=== PATIENT | female | born 2000 | race Caucasian/White ===

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

== ENCOUNTER 2020-02-16 11:59 | Emergency (ER) | payer BC, MEDICAID ==
--- NOTE | 2020-02-16 12:24 | ER Document Report ---
ED Medical Screen (RME) - General Chief Complaint: Leg Swelling Stated Complaint: LOWER RIGHT LEG PAIN/SWELLING Time Seen by Provider: 02/16/20 12:17 Primary Care Provider: NALLELY WHITE [Primary Care Provider] - Follow up as needed TRAVEL OUTSIDE OF THE [place] IN LAST 30 DAYS: No - HPI Notes: Patient is a 19-year-old female with no medical history who presents with right lower leg swelling that began yesterday. Patient reports redness, pain and swelling to her right calf. She currently takes OCPs with estrogen in them. She denies tobacco use and any recent travel. She denies any recent injury to her right leg. Patient was seen by her primary care this morning and was told to come to the ED for rule out of a DVT. No prior history of blood clots. - Related Data Allergies/Adverse Reactions: No Known Allergies Allergy (Verified 09/05/18 17:11) Home Medications: control, doxycycline hyclate Past Medical History - Social History Chew tobacco use (# tins/day): No Frequency of alcohol use: None Drug Abuse: None Family history: Reviewed & Not Pertinent Pulmonary Medical History: Denies: Hx Asthma Neurological Medical History: Reports: Hx Migraine. Denies: Hx Cerebrovascular Accident, Hx Seizures Renal/ Medical History: Denies: Hx Peritoneal Dialysis - Immunizations Immunizations up to date: Yes Hx Diphtheria, Pertussis, Tetanus Vaccination: Yes Physical Exam - Vital signs Vitals: Temp Pulse Resp BP Pulse Ox 98.1 F 104 H 18 137/69 H 99 02/16/20 12:02/16/20 12:02/16/20 12:02/16/20 12:02/16/20 12:07 - Cardiovascular Pulses: Normal: Posterior tibial, Dorsalis pedis - Extremities Calf: Tender, Other - Swelling and mild erythema Course - Re-evaluation Re-evalutation: I have greeted and performed a rapid initial assessment of this patient. A comprehensive ED assessment and evaluation of the patient, analysis of test results and completion of medical decision making process will be conducted by an additional ED providers. - Vital Signs Vital signs: Temp Pulse Resp BP Pulse Ox 98.1 F 104 H 18 137/69 H 99 02/16/20 12:02/16/20 12:07 02/16/20 12:02/16/20 12:07 02/16/20 12:07 Doctor's Discharge - Discharge Referrals: NALLELY WHITE [Primary Care Provider] - Follow up as needed
[2020-02-16 12:54] LABS: ABSOLUTE EOSINOPHILS # (AUTO) 0.2 10^3/uL (0.0-0.6); ABSOLUTE LYMPHOCYTES (AUTO) 2.2 10^3/uL (0.5-4.7); ABSOLUTE MONOCYTES (AUTO) 0.6 10^3/uL (0.1-1.4); ABSOLUTE NEUT (AUTO) 6.8 10^3/uL (1.7-8.2); BASOPHILS % (AUTO) 0.2 % (0-2); EOSINOPHILS % (AUTO) 2.4 % (0-6); HEMATOCRIT 38.3 % (36.0-47.0); HEMOGLOBIN 13.2 g/dL (12.0-15.5); LYMPHOCYTES % (AUTO) 22.1 % (13-45); MEAN CORPUSCULAR HEMOGLOBIN 30.9 pg (27.0-33.4); MEAN CORPUSCULAR HGB CONC 34.5 g/dL (32.0-36.0); MEAN CORPUSCULAR VOLUME 90 fl (80-97); MONOCYTES % (AUTO) 5.8 % (3-13); PLATELET COUNT 241 10^3/uL (150-450); RED BLOOD COUNT 4.27 10^6/uL (3.72-5.28); RED CELL DISTRIBUTION WIDTH 13.1 % (11.5-14.0); SEGMENTED NEUTROPHILS % (AUTO) 69.5 % (42-78); TOTAL CELLS COUNTED % (AUTO) 100 %; WHITE BLOOD COUNT 9.7 10^3/uL (4.0-10.5)
[2020-02-16 13:01] LABS: INTERNATIONAL RATION (INR) 1.01; PARTIAL THROMBOPLASTIN TIME 28.3 SEC (23.5-35.8); PROTHROMBIN TIME 13.5 SEC (11.4-15.4)
--- NOTE | 2020-02-16 15:11 | RADIOLOGY REPORT (SQ) ---
EXAM DESCRIPTION: VENOUS UNILATERAL LOWER IMAGES COMPLETED DATE/TIME: 02/16/2020 3:04 pm REASON FOR STUDY: right calf swelling COMPARISON: None. TECHNIQUE: Dynamic and static hayes scale and color images acquired of the right leg venous system. S elected spectral images acquired with additional compression and augmentation maneuvers. The contrala teral common femoral vein and saphenofemoral junction were also imaged. Images stored on PACS. LIMITATIONS: None. FINDINGS: COMMON FEMORAL: Normal phasicity, compression and augmentation. No visualized echogenic ma terial on hayes scale. No defects on color images. FEMORAL: Normal compression and augmentation. No visualized echogenic material on hayes scale. No defe cts on color images. POPLITEAL: Normal compression, augmentation. No visualized echogenic material on hayes scale. No defec ts on color images. CALF VESSELS: Normal compression, augmentation. No visualized echogenic material on hayes scale. No de fects on color images. GSV and SSV: Normal compression, augmentation. No visualized echogenic material on hayes scale. No def ects on color images. ANY DEEP VENOUS INSUFFICIENCY: Not evaluated. ANY EVIDENCE OF POPLITEAL CYST: No. OTHER: No other significant finding. CONTRALATERAL COMMON FEMORAL VEIN AND SAPHENOFEMORAL JUNCTION: Normal phasicity, compression and augmentation. No visualized echogenic material on hayes scale. No de fects on color images. IMPRESSION: NO EVIDENCE OF DVT OR SVT IN THE RIGHT LEG. TECHNICAL DOCUMENTATION: JOB ID: [id number] 2010 [employer]- All Rights Reserved Reading location - IP/workstation name: [email or web address]
--- NOTE | 2020-02-16 15:45 | ER Document Report ---
ED General - General Chief Complaint: Leg Swelling Stated Complaint: LOWER RIGHT LEG PAIN/SWELLING Time Seen by Provider: 02/16/20 12:17 Primary Care Provider: NALLELY WHITE [Primary Care Provider] - Follow up as needed TRAVEL OUTSIDE OF THE [place] IN LAST 30 DAYS: No - Related Data Allergies/Adverse Reactions: No Known Allergies Allergy (Verified 09/05/18 17:11) Home Medications: control, doxycycline hyclate Past Medical History - Social History Smoking Status: Never Smoker Chew tobacco use (# tins/day): No Frequency of alcohol use: None Drug Abuse: None Family History: Reviewed & Not Pertinent Pulmonary Medical History: Denies: Hx Asthma Neurological Medical History: Reports: Hx Migraine. Denies: Hx Cerebrovascular Accident, Hx Seizures Renal/ Medical History: Denies: Hx Peritoneal Dialysis - Immunizations Immunizations up to date: Yes Hx Diphtheria, Pertussis, Tetanus Vaccination: Yes Physical Exam - Vital signs Vitals: Temp Pulse Resp BP Pulse Ox 98.1 F 104 H 18 137/69 H 99 02/16/20 12:07 02/16/20 12:07 02/16/20 12:07 02/16/20 12:07 02/16/20 12:07 Course - Vital Signs Vital signs: Temp Pulse Resp BP Pulse Ox 98.1 F 104 H 18 137/69 H 99 02/16/20 12:07 02/16/20 12:07 02/16/20 12:07 02/16/20 12:07 02/16/20 12:07 - Laboratory Result Diagrams: 02/16/20 12:30 Discharge - Discharge Clinical Impression: Cellulitis of leg without foot, right Condition: Good Disposition: HOME, SELF-CARE Instructions: Cellulitis (OM) Additional Instructions: A prescription for cephalexin 500 mg twice a day has been sent to your pharmacy. Please pick that up and take it according to label instructions until it is all gone. If your symptoms seem to be worsening (e.g. worsening redness, worsening pain, red streaks going up your leg, fever and chills) you should return to the emergency department for reevaluation immediately. If your symptoms simply do not improve I would recommend following up with a local counter stitcher. Return if any other concerning symptoms develop. Prescriptions: Cephalexin Monohydrate [Keflex 500 mg Capsule] 500 mg PO Q12H 7 Days #14 capsule Referrals: NALLELY WHITE [Primary Care Provider] - Follow up as needed
[2020-02-16 16:04] VITALS: BP 130/72
== END 2020-02-16 16:05 | disposition home or self-care (01) ==
LOC: ER 11:59
DX: L03.115 Cellulitis of right lower limb (principal); Z79.3 Long term (current) use of hormonal contraceptives; Z79.2 Long term (current) use of antibiotics
CPT/HCPCS: 36415; 84703; 85025; 85610; 85730; 93971; 99284